=== PATIENT | female | born 1990 | race Two or more races ===

== ENCOUNTER 2021-10-24 07:40 | Emergency (ER) | payer OTHER ==
[~2021-10-24] VITALS: Ht 157.5 cm; Wt 81.6 kg
--- NOTE | 2021-10-24 07:51 | NUR ---
BIBS for c/o L sided flank pain 04/30, dysuria since last night. Abdomen soft and non-distended. Denies n/v at this time. Will continue to monitor the patient.
--- NOTE | 2021-10-24 07:54 | NUR ---
DR MORALES AT THE BEDSIDE
[2021-10-24] MEDS ORDERED: IV NS 0.9% 1,000 ML BAG IV ONE (08:00)
[2021-10-24] MEDS ORDERED: KETOROLAC TROMETHAMINE INJ 30 MG/ML VIAL IV ONE (08:00)
--- NOTE | 2021-10-24 08:00 | NUR ---
PT IV LINE ESTABLISHED BLOOD DRAWN AND SENT TO LAB.
--- NOTE | 2021-10-24 08:11 | NUR ---
TRADING FLOOR OPERATOR AT BEDSIDE FOR ULTRASOUND.
[2021-10-24 08:35] LABS: CALCIUM, SERUM 8.2 mg/dL (8.5-10.1); CREATININE 0.9 mg/dL (0.6-1.3); POTASSIUM 3.6 mmol/L (3.5-5.1)
[2021-10-24 08:42] LABS: BASOPHILS % (AUTO) 0.1 % (0.0-2.0); EOSINOPHILS % (AUTO) 0.3 % (0.0-6.0); HEMATOCRIT 45 % (33-45); HEMOGLOBIN 14.9 g/dL (11.5-14.8); LYMPHOCYTES # (AUTO) 2.1 K/uL (0.8-4.8); LYMPHOCYTES % (AUTO) 19.2 % (20.0-44.0); MEAN CORPUSCULAR HGB CONC 34 g/dl (31.0-36.0); MEAN CORPUSCULAR VOLUME 95 fL (82-100); MONOCYTES # (AUTO) 0.8 K/uL (0.1-1.30); MONOCYTES % (AUTO) 7.2 % (2.0-12.0); NEUTROPHILS # (AUTO) 8.1 K/uL (1.8-8.9); NEUTROPHILS % (AUTO) 73.2 % (43.0-81.0); PLATELET COUNT (AUTO) 294 K/uL (150-450); RED BLOOD CELL COUNT(AUTO) 4.69 MIL/uL (4.0-5.2); WHITE BLOOD COUNT (AUTO) 11.1 K/uL (4.3-11.0)
--- NOTE | 2021-10-24 08:42 | NUR ---
URINE SPECIMEN COLLECTED AND SENT TO LAB.
[2021-10-24 08:44] LABS: ALBUMIN 3.6 g/dL (3.4-5.0); BILIRUBIN,DIRECT 0.1 mg/dL (0.0-0.2); BILIRUBIN,TOTAL 0.5 mg/dL (0.2-1.0); TOTAL PROTEIN, SERUM 7.9 g/dL (6.4-8.2)
[2021-10-24 08:46] LABS: BILIRUBIN,URINE Negative (NEGATIVE); COLOR,URINE YELLOW (YELLOW); LEUKOCYTE ESTERASE ,URINE Large (NEGATIVE); NITRITE, URINE Negative (NEGATIVE); PH,URINE 6.5 (5.0-8.0); PROTEIN,URINE 100 mg/dl (NEGATIVE); UGLUCOSE Negative (NEGATIVE); UROBILINOGEN,URINE 0.2 EU/dL (0.2)
[2021-10-24] MEDS ORDERED: KETOROLAC TROMETHAMINE 15 MG/ML VIAL ONE (09:04)
[2021-10-24] MEDS ORDERED: IBUP-1955 PO (09:13)
[2021-10-24] MEDS ORDERED: CIPR-262 PO (09:13)
--- NOTE | 2021-10-24 09:19 | NUR ---
IV removed. Catheter intact and site benign. Pressure and 4x4 applied to site. No bleeding noted. Patient discharged to home in stable condition. Written and verbal after care instructions given. Patient verbalizes understanding of instruction.
[2021-10-24 09:25] LABS: BACTERIA,URINE Many /HPF (None Seen); SQUAMOUS EPITHELIAL CELL,UR Moderate /HPF (None Seen); WBC,URINE 21-50 /HPF (0-3)
[2021-10-24 09:26] VITALS: BP 125/71
== END 2021-10-24 09:26 | disposition home or self-care (01) ==
LOC: ER 07:42
DX: N12 Tubulo-interstitial nephritis, not specified as acute or chronic (principal); Z90.89 Acquired absence of other organs; Z98.890 Other specified postprocedural states; Z60.2 Problems related to living alone
CPT/HCPCS: 36415; 76700; 80048; 80076; 81001; 83690; 84703; 85025; 87077; 87086; 87186; 96361; 96374; 99284; J1885; J7030

== ENCOUNTER 2022-08-25 15:33 | Emergency (ER) | payer MEDICAID, OTHER ==
[~2022-08-25] VITALS: Ht 157.5 cm; Wt 86.2 kg
[~2022-08-25 15:33] MED LIST: CIPR-262 PO; IBUP-1955 PO
[2022-08-25 16:00] VITALS: BP 133/72
--- NOTE | 2022-08-25 16:39 | NUR ---
COVID, FLU, AND STREP SWABS DONE AND SENT TO LAB
[2022-08-25] MEDS ORDERED: ACETAMINOPHEN 325 MG TABLET ONE (16:42)
[2022-08-25] MEDS ORDERED: ACETAMINOPHEN 325 MG TABLET PO ONE (17:00)
--- NOTE | 2022-08-25 18:51 | NUR ---
Patient discharged to home in stable condition. Written and verbal after care instructions given. Patient verbalizes understanding of instruction.
== END 2022-08-25 18:51 | disposition home or self-care (01) ==
LOC: ER 15:37
DX: J06.9 Acute upper respiratory infection, unspecified (principal); Z20.822 Contact with and (suspected) exposure to COVID-19; Z97.5 Presence of (intrauterine) contraceptive device
CPT/HCPCS: 99284; 71045; 87426; 87804; 87070; 87880; C9803; 86403-TC

== ENCOUNTER 2024-10-28 17:56 | Emergency (ER) | payer SELFPAY ==
[~2024-10-28] VITALS: Ht 157.5 cm; Wt 97.5 kg
[2024-10-28 18:31] VITALS: BP 159/96; TEMP 98.3; O2SAT 99
[2024-10-28] MEDS: ACETAMINOPHEN 325 MG TABLET PO ONE (22:49)
[2024-10-28] MEDS: KETOROLAC TROMETHAMINE INJ 30 MG/ML VIAL IM ONE (22:49)
[2024-10-28] MEDS ORDERED: KETOROLAC TROMETHAMINE INJ 30 MG/ML VIAL ONE (22:49)
[2024-10-28] MEDS ORDERED: ACETAMINOPHEN 325 MG TABLET ONE (22:49)
[2024-10-28] MEDS ORDERED: ACET325C7 PO (22:53)
[2024-10-28] MEDS ORDERED: IBUP-1955 PO (22:53)
[2024-10-28] MEDS ORDERED: [UNRECOGNIZED DRUG - CODE] OP (22:53)
[2024-10-29 00:19] LABS: PREGNANCY TEST URINE QUAL NEGATIVE (NEGATIVE)
== END 2024-10-29 01:13 | disposition home or self-care (01) ==
LOC: ER 17:59
DX: G57.61 Lesion of plantar nerve, right lower limb (principal); H10.11 Acute atopic conjunctivitis, right eye; Z90.49 Acquired absence of other specified parts of digestive tract; Z90.710 Acquired absence of both cervix and uterus; Z60.2 Problems related to living alone
CPT/HCPCS: 99283; 96372; 84703; J1885